=== PATIENT | female | born 1990 | race Caucasian/White ===

== ENCOUNTER → 2019-02-26 | Outpatient (CLI) | payer BC | END | disposition home or self-care (01) | LOC: LAB 11:44 | PROVIDERS: ATTEND Internal Medicine | DX: E78.5 Hyperlipidemia, unspecified (principal); E55.9 Vitamin D deficiency, unspecified; R73.03 Prediabetes; E03.9 Hypothyroidism, unspecified | CPT/HCPCS: 80053; 80061; 81003; 82306; 83036; 84436; 84443; 85025 ==